=== PATIENT | female | born 1995 | race Caucasian/White ===

== ENCOUNTER 2019-03-29 21:21 | Emergency (ER) | payer SELFPAY ==
[2019-03-29 21:29] VITALS: BP 123/76; PULSE 79; RESP 16; TEMP 36.9; O2SAT 98; BMI 23.6
--- NOTE | 2019-03-29 22:02 | W.ED.BACK ---
HPI - Back Pain/Injury General: Chief Complaint: Back Pain/Injury Stated Complaint: BACK PAIN Time Seen by Provider: 03/29/19 21:53 History of Present Illness: HPI Narrative: Patient is a 23-year-old female comes into the ED with thoracic back pain. 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 She says she felt her back pop and then had pain afterwards. Patient denies any numbness or tingling down the extremities, weakness to the extremities, bowel or bladder incontinence or saddle anesthesia. Patient says she is able to move has normal range of motion but just feels pain. She thinks she pulled some muscles in her back. Patient denies fever, chills, nausea, vomiting, abdominal pain, chest pain, shortness of breath, dysuria, hematuria, constipation, diarrhea, blood in the stool, numbness or weakness to extremities. Review of Systems General: Reports: 10 or more systems reviewed and unremarkable except in HPI and below PFSH ED PFSH: Statuses (acute, chronic, etc) shown below reflect problem list status as previously entered and may not be historically accurate Social History Smoking and tobacco status: current every day smoker Physical Exam Const: COMMON NORMALS: oriented x3 HENMT: COMMON NORMALS: normocephalic HEAD & SCALP: normocephalic MOUTH: oral and palatal mucosa normal THROAT: posterior oropharynx normal and uvula midline Neck/C-Spine: COMMON NORMALS: supple GENERAL: Yes normal visual inspection Resp: COMMON NORMALS: normal respiratory effort, no retractions, no use of accessory muscles and clear to auscultation bilaterally AUSCULTATION: clear to auscultation bilaterally Cardio: COMMON NORMALS: regular rate, regular rhythm, S1 normal heart sound, S2 normal heart sound, no gallops, no clicks, no murmurs and peripheral pulses 2+ throughout RATE: regular rate RHYTHM: regular rhythm HEART SOUNDS: S1 normal and S2 normal PERIPHERAL PULSES: pulses 2+ throughout GI: COMMON NORMALS: normal to inspection, nondistended, normoactive bowel sounds, soft to palpation, non-tender and no masses PALPATION: Yes soft : COMMON NORMALS: Yes no CVA tenderness BLADDER/KIDNEY EXAM: Yes no CVA tenderness Back/Pelvis: COMMON NORMALS: no CVA tenderness THORACIC SPINE/UPPER BACK: Yes pain with ROM and Yes paraspinal muscle tenderness Extremity: COMMON NORMALS: normal to inspection Neuro: COMMON NORMALS: oriented x3 Skin: COMMON NORMALS: no rashes or lesions noted GENERAL SKIN EXAM: no rashes or lesions noted Course Vital Signs: Vital signs: Vital Signs Temperature 98.4 F 03/29/19 21:29 Pulse Rate 74 03/29/19 23:08 Respiratory Rate 20 H 03/29/19 23:08 Blood Pressure 116/69 03/29/19 23:08 Pulse Oximetry 98 03/29/19 21:29 Discharge Plan Discharge Patient Disposition: Home, Self-Care Clinical Impression: Thoracic back pain Qualifiers: Chronicity: acute Back pain laterality: bilateral Qualified Code(s): M54.6 - Pain in thoracic spine Condition: Stable Prescriptions: New Robaxin-750 750 mg tablet 750 mg PO Q8H Qty: 20 RF: 0 No Action No Known Home Medications RF: 0 Discharge Orders: Discharge Order (Routine); Ordered 03/29/19 Ordered By: Velasquez Stapleton Referrals: Tien Alcala FNP [Family Provider] - Discharge Diet: Regular Discharge Activity: Increase activity as tolerated Activity Restrictions/Additional Instructions: Follow-up with primary care doctor in 5-7 days for reevaluation. Take prescribed muscle relaxer Robaxin before bed to help with pain and comfort when sleeping. Take [id number] Aleve for muscle pain and inflammation. Apply ice and/or heat for symptom relief. Stretch back out daily and also massage back muscles that are tender. Discharge Date/Time: 03/29/19 23:04 Coding Level of Care Code ED [employer] Field Processing Supervisor for Sravan Cabello
[2019-03-29] MEDS: ketorolac 30 mg/mL INJ IM (22:51)
[2019-03-29] MEDS: orphenadrine 30 mg/mL Inj 2 mL 60 MG IM (22:52)
[2019-03-29 23:08] VITALS: BP 116/69; PULSE 74; RESP 20
== END 2019-03-29 23:04 | disposition home or self-care (01) ==
PROVIDERS: Emergency Provider Physician Assistant; Family Provider Nurse Practitioner Family
DX: M54.6 Pain in thoracic spine (principal); F17.210 Nicotine dependence, cigarettes, uncomplicated
CPT/HCPCS: 96372; 99281; J1885; J2360

== ENCOUNTER 2019-05-06 23:40 | Emergency (ER) | payer BC, SELFPAY ==
[2019-05-06 23:58] VITALS: BP 123/70; PULSE 87; RESP 16; TEMP 36.9; O2SAT 99; BMI 21.5
--- NOTE | 2019-05-07 00:26 | ED_ITS ---
HPI - Female Genitourinary General: Chief complaint: Vaginal Bleeding Stated complaint: possible miscariage Time Seen by Provider: 05/07/19 00:16 Source: patient Mode of arrival: ambulatory Limitations: no limitations History of Present Illness: HPI Narrative: Patient is a 23-year-old female who presents to ED today with complaints of a possible miscarriage. Patient states she had 2+ home tests approximately a week ago. She states 2 days ago she began noticing vaginal spotting and since then bleeding has increased. She states she is passing clots. She reports soaking a pad every 1-2 hours over the past day. Last LMP was March 02 and she describes her menstrual cycles as regular. If patient is positive today that would make her a female. She also reports 2 episodes of vomiting today. Reports some mild lower abdominal pain/cramping. Denies urinary symptoms. No fever/chills. MD elicited complaint: vaginal bleeding Onset (ago): day(s) Quality of pain: cramping Consistency: constant Vaginal discharge: none Vaginal bleeding: heavy and clots Exacerbating factors: none Relieving factors: none Associated symptoms: Reports abdominal pain and nausea; Deny headache(s), syncope or vaginal discharge Date of Last Menstrual Period: 03/02/19 Review of Systems Const: Denies: fever, chills, body aches, change in appetite, change in weight, fatigue or malaise Card: Denies: chest pain, palpitations, irregular heart rhythm, edema, lightheadedness, syncope, pre-syncope or shortness of breath when lying down Resp: Denies: shortness of breath, productive cough, coughing up blood or chest congestion GI: Reports: abdominal pain, nausea and vomiting (x2); Denies: diarrhea, change in bowel habits, change in stool character, blood in s tool, white/light colored stool or fatty stool : Reports: vaginal bleeding and pelvic pain; Denies: flank pain, difficulty urinating, painful urination, urinary frequency, urinary urgency, genital lesion, vaginal odor or vaginal discharge Musc: Denies: neck pain or back pain Skin/Breast: Denies: rash Neuro: Denies: headache PFSH ED PFSH: Social History Smoking and tobacco status: never smoked Female Reproductive History: Date of last menstrual period: 03/02/19 Physical Exam Const: COMMON NORMALS: no apparent distress, oriented x3, no limitations, healthy appearing, alert and well nourished Resp: COMMON NORMALS: normal respiratory effort and clear to auscultation bilaterally AUSCULTATION: clear to auscultation bilaterally Cardio: COMMON NORMALS: regular rate and regular rhythm RATE: regular rate RHYTHM: regular rhythm GI: COMMON NORMALS: normal to inspection, nondistended, normoactive bowel sounds, soft to palpation, no hepatosplenomegaly and no masses PALPATION: Yes soft, Yes tender (mild throughout lower abdomen) and Yes no hepatosplenomegaly : COMMON NORMALS: Yes no CVA tenderness BLADDER/KIDNEY EXAM: Yes no CVA tenderness Back/Pelvis: COMMON NORMALS: no CVA tenderness Neuro: COMMON NORMALS: oriented x3 SENSORIUM/ORIENTATION: Yes alert Skin: COMMON NORMALS: no rashes or lesions noted GENERAL SKIN EXAM: no rashes or lesions noted Course Vital Signs: Vital signs: Vital Signs Temperature 98.5 F 05/06/19 23:58 Pulse Rate 87 05/06/19 23:58 Respiratory Rate 16 05/06/19 23:58 Blood Pressure 123/70 05/06/19 23:58 Pulse Oximetry 99 05/06/19 23:58 MDM - Female MDM Narrative: Medical decision making narrative: Patient's vitals are completely stable. Labs are non-concerning at this time. H&H at this time are 10.5/33.5. I have no previous for comparisons. Patient's hCG is 0.50 meaning this is most likely a normal menstrual cycle. There is no need for additional work-up today including pelvic ultrasound. Recommend she follow-up with her primary care physician in 48 hours if bleeding continues. Return to the emergency department at anytime for worsening bleeding, lightheadedness, dizziness, syncopal episodes. Lab Data: Labs: Lab Results 05/07/19 05/07/19 05/07/19 Range/Units 00:36 00:36 00:36 WBC 7.5 (4.0-10.0) 10^3/ uL RBC 3.54 L (4.1-5.3) 10^6/u L Hgb 10.5 L (11.5-15.3) g/dL Hct 33.5 L (37.0-47.0) % MCV 94.6 (81-99) fL MCH 29.7 (28.0-34.0) pg MCHC 31.3 (30.0-36.0) g/dL RDW 13.4 (12.1-15.1) % Plt Count 318 (130-400) 10^3/c mm MPV 9.7 (7.4-10.4) fL Neut % (Auto) 46.0 % Lymph % (Auto) 35.2 % Tompkins % (Auto) 10.4 % Eos % (Auto) 7.2 % Baso % (Auto) 1.1 % Neut # (Auto) 3.5 (1.8-7.7) 10^3/u L Lymph # (Auto) 2.7 (0.8-4.8) 10^3/u L Tompkins # (Auto) 0.8 (0.2-0.9) 10^3/u L Eos # (Auto) 0.5 (0.0-0.8) 10^3/u L Baso # (Auto) 0.1 (0.0-0.1) 10^3/u L Nucleated RBC % (a uto) 0 % Nucleated RBCs # 0.0 /100WBC Sodium 136 (136-145) mmol/L Potassium 3.8 (3.5-5.1) mmol/L Chloride 100 (98-107) mmol/L Carbon Dioxide 25 (22-29) mmol/L Anion Gap 14.8 (5-19) BUN 13 (6-20) mg/dL Creatinine 0.7 (0.5-0.9) mg/dL GFR Calculation 105.6 (90-130) mL/min Glucose 88 (65-115) mg/dL Calcium 9.5 (8.5-10.5) mg/dL Total Bilirubin 0.2 (0.15-1.2) mg/dL AST 17 (0-32) U/L ALT 14 (0-33) U/L Alkaline Phosphata se 62 (35-105) IU/L Total Protein 7.6 (6.6-8.7) g/dL Albumin 4.2 (3.5-5.2) g/dL Globulin 3.4 (1.3-4.6) g/dL Ser , Doreen i-Qnt 0.50 mIU/mL Blood Type A Positive Discharge Plan Discharge Patient Disposition: Home, Self-Care Clinical Impression: Normal menstrual period Condition: Stable Prescriptions: No Action No Known Home Medications RF: 0 Robaxin-750 750 mg tablet 750 mg PO Q8H Qty: 20 RF: 0 Discharge Orders: Discharge Order (Routine); Ordered 05/07/19 Ordered By: Lori Wilson Referrals: Tien Alcala FNP [Family Provider] - Rishi Mancuso DO [Primary Care Provider] - Discharge Diet: Usual diet Discharge Activity: Resume usual activity Activity Restrictions/Additional Instructions: Follow-up with primary care in 48 hours if heavy bleeding persists. Return to the emergency department for worsening bleeding, lightheadedness, dizziness, passing out episodes, worsening pain, or any other concerns you have. Coding Level of Care Code ED Senior Mechanical Technician for Sravan Fwamaya Exam Detailed
[2019-05-07 00:46] LABS: Basophils # 0.1 10^3/uL (0.0-0.1); Basophils % 1.1 %; Eosinophils # 0.5 10^3/uL (0.0-0.8); Eosinophils % 7.2 %; Hematocrit 33.5 % (37.0-47.0); Hemoglobin 10.5 g/dL (11.5-15.3); Lymphocytes # 2.7 10^3/uL (0.8-4.8); Lymphocytes % 35.2 %; Mean Corpuscular HGB Conc 31.3 g/dL (30.0-36.0); Mean Corpuscular Hemoglobin 29.7 pg (28.0-34.0); Mean Corpuscular Volume 94.6 fL (81-99); Mean Platelet Volume 9.7 fL (7.4-10.4); Monocytes # 0.8 10^3/uL (0.2-0.9); Monocytes % 10.4 %; Neutrophils # 3.5 10^3/uL (1.8-7.7); Nucleated Red Blood Cells % 0 %; Platelet Count 318 10^3/cmm (130-400); Red Blood Count 3.54 10^6/uL (4.1-5.3); Red Cell Distribution Width 13.4 % (12.1-15.1); White Blood Count 7.5 10^3/uL (4.0-10.0)
[2019-05-07 01:23] LABS: Alanine Aminotransferase 14 U/L (0-33); Albumin Level 4.2 g/dL (3.5-5.2); Alkaline Phosphatase 62 IU/L (35-105); Anion Gap 14.8 (5-19); Aspartate Amino Transferase 17 U/L (0-32); Blood Urea Nitrogen 13 mg/dL (6-20); Calcium 9.5 mg/dL (8.5-10.5); Carbon Dioxide 25 mmol/L (22-29); Chloride 100 mmol/L (98-107); Creatinine Clr Calc Pharmacy 103.2966; Globulin 3.4 g/dL (1.3-4.6); Glomerular Filtration Rate 105.6 mL/min (90-130); Glucose 88 mg/dL (65-115); Potassium 3.8 mmol/L (3.5-5.1); Sodium 136 mmol/L (136-145); Total Bilirubin 0.2 mg/dL (0.15-1.2); Total Protein 7.6 g/dL (6.6-8.7)
[2019-05-07 01:35] VITALS: BP 116/57; PULSE 70; RESP 18; O2SAT 96
== END 2019-05-07 01:35 | disposition home or self-care (01) ==
PROVIDERS: Emergency Provider Physician Assistant; Family Provider Nurse Practitioner Family; PCP Family Medicine
DX: R10.30 Lower abdominal pain, unspecified (principal)
CPT/HCPCS: 36415; 80053; 84702; 85025; 86900; 99282

== ENCOUNTER 2019-08-18 09:23 | Emergency (ER) | payer SELFPAY ==
[2019-08-18 09:27] VITALS: BP 141/77; PULSE 90; RESP 16; TEMP 36.7; O2SAT 99; BMI 23.6
--- NOTE | 2019-08-18 09:34 | XR_ITS ---
WS: [id number] XR chest 1V portable 10115 REASON FOR EXAM: cough FINDINGS: The lung conte are well aerated. A nipple ring is seen on the right side. No pneumonia, pleural effusion, pulmonary edema, or mass effect. The hilum and apices are normal. No osseous abnormalities. XR/XR chest 1V portable [id number] IMPRESSION: Negative chest for acute findings.
--- NOTE | 2019-08-18 09:35 | ED_ITS ---
HPI - General Adult General: Chief complaint: General Medical Stated complaint: N/V BLOOD IN URINE Time Seen by Provider: 08/18/19 09:31 History of Present Illness: HPI narrative: Patient is a 23-year-old female comes to the ED with abdominal pain nausea and vomiting. Symptoms started yesterday. Patient is also complaining of having some right-sided flank pain. Patient says she had some blood in her urine yesterday. Denies having a fever or chills. Patient states she had about 4 episodes of emesis yesterday and did cough up some blood after 4 episodes of emesis. Last menstrual cycle was July 01. She says her menstrual cycles are irregular and there will be some months where she will not have a period and then the following month menstruation flow will be very heavy. Denies any menstrual cramping or pain before and during periods. Patient denies any vaginal bleeding or other vaginal discharge. Associated symptoms: Reports nausea and vomiting; Deny chest pain, dyspnea, headache(s), rash or palpitations Review of Systems Const: Denies: fever(s), chills or fatigue Eyes: Denies: change in vision or eye discomfort ENMT: Denies: throat pain, odynophagia, nasal discharge or nasal congestion Card: Denies: chest pain, palpitations, edema, swelling of feet/ankles, dyspnea on exertion or orthopnea Resp: Denies: dyspnea, productive cough or non-productive cough GI: Reports: abdominal pain, nausea and vomiting; Denies: diarrhea, constipation or hematochezia : Reports: flank pain (right); Denies: dysuria or hematuria Musc: Denies: neck pain, back pain or extremity swelling Skin/Breast: Denies: rash or new lesions Neuro: Denies: headache(s), numbness in extremities or weakness in extremities PFS ED PFSH: Social History Smoking and tobacco status: never smoked Female Reproductive History: Date of last menstrual period: 07/02/19 Physical Exam Const: COMMON NORMALS: no acute distress, patient oriented x3, healthy appearing and alert GENERAL APPEARANCE: cooperative and comfortable; not ill appearing HENMT: COMMON NORMALS: normocephalic HEAD & SCALP: normocephalic MOUTH: Normal oral and palatal mucosa present THROAT: posterior oropharynx normal and uvula midline Eye: COMMON NORMALS: Equal, round and reactive pupils present PUPIL: Yes Equal, round and reactive pupils present Neck/C-Spine: COMMON NORMALS: supple GENERAL: Yes normal visual inspection Resp: COMMON NORMALS: normal respiratory effort, No retractions, No use of accessory muscles and clear to auscultation bilaterally AUSCULTATION: clear to auscultation bilaterally Cardio: COMMON NORMALS: regular rate, regular rhythm, S1 normal heart sound present, S2 normal heart sound present, No gallops present (Cardio), No clicks present (Cardio), No murmurs present (Cardio) and Peripheral pulses 2+ throughout RATE: regular rate RHYTHM: regular rhythm HEART SOUNDS: S1 normal heart sound present and S2 normal heart sound present PERIPHERAL PULSES: Peripheral pulses 2+ throughout GI: COMMON NORMALS: Normal to inspection, nondistended, normoactive bowel sounds present, Soft to palpation and no masses AUSCULTATION: Yes normoactive bowel sounds PALPATION: Yes Soft to palpation and Yes Tenderness to palpation present (GI) Details: RLQ (Positive McBurney's point) : BLADDER/KIDNEY EXAM: Yes CVA tenderness on the right Back/Pelvis: GENERAL BACK: Yes CVA tenderness Extremity: COMMON NORMALS: normal to inspection and no pedal edema Neuro: COMMON NORMALS: patient oriented x3 and moves all extremities SENSORIUM/ORIENTATION: Yes alert Skin: COMMON NORMALS: no rashes or lesions noted GENERAL SKIN EXAM: no rashes or lesions noted and dry skin Course Vital Signs: Vital signs: Vital Signs Temperature 98.1 F 08/18/19 09:27 Pulse Rate 87 08/18/19 14:49 Respiratory Rate 18 08/18/19 14:49 Blood Pressure 139/70 08/18/19 14:49 Pulse Oximetry 99 08/18/19 14:49 [facility] - General Adult Lab Data: Attestation: I reviewed the patient's lab results. Labs: Lab Results 08/18/19 08/18/19 08/18/19 Range/Units 09:43 09:43 09:43 WBC 6.7 (4.0-10.0) 10^3/ uL RBC 4.48 (4.1-5.3) 10^6/u L Hgb 9.8 L (11.5-15.3) g/dL Hct 35.5 L (37.0-47.0) % MCV 79.2 L (81-99) fL MCH 21.9 L (28.0-34.0) pg MCHC 27.6 L (30.0-36.0) g/dL RDW 16.0 H (12.1-15.1) % Plt Count 390 (130-400) 10^3/c mm MPV 10.1 (7.4-10.4) fL Neut % (Auto) 39.2 % Lymph % (Auto) 42.2 % Randolph % (Auto) 12.5 % Eos % (Auto) 4.6 % Baso % (Auto) 1.2 % Neut # (Auto) 2.6 (1.8-7.7) 10^3/u L Lymph # (Auto) 2.8 (0.8-4.8) 10^3/u L Randolph # (Auto) 0.8 (0.2-0.9) 10^3/u L Eos # (Auto) 0.3 (0.0-0.8) 10^3/u L Baso # (Auto) 0.1 (0.0-0.1) 10^3/u L Nucleated RBC % (a uto) 0 % Nucleated RBCs # 0.0 /100WBC Sodium 139 (136-145) mmol/L Potassium 4.2 (3.5-5.1) mmol/L Chloride 103 (98-107) mmol/L Carbon Dioxide 23 (22-29) mmol/L Anion Gap 17.2 (5-19) BUN 15 (6-20) mg/dL Creatinine 0.8 (0.5-0.9) mg/dL GFR Calculation 90.5 (90-130) mL/min Glucose 103 (65-115) mg/dL Calculated Osmolal ity 285 (285-295) mOsm/k g Calcium 10.1 (8.5-10.5) mg/dL Total Bilirubin 0.2 (0.15-1.2) mg/dL AST 18 (0-32) U/L ALT 12 (0-33) U/L Alkaline Phosphata se 72 (35-105) IU/L Total Protein 8.3 (6.6-8.7) g/dL Albumin 4.4 (3.5-5.2) g/dL Globulin 3.9 (1.3-4.6) g/dL Lipase 63 H (13-60) U/L HCG, Qual Negative (Negative) Urine Color (Yellow) Urine Appearance (CLEAR) Urine pH (5-7) Ur Specific Gravit y (1.005-1.030) Urine Protein (Negative) Urine Glucose (UA) (Normal) Urine Ketones (Negative) Urine Blood (Negative) Urine Nitrate (Negative) Urine Bilirubin (NEGATIVE) Urine Urobilinogen (Negative) mg/dL Ur Leukocyte Fela ase (Negative) Urine RBC (0-2) /hpf Urine WBC (0-5) /hpf Ur Squamous Epith Cells (0-5) Urine Bacteria (NONE) 08/18/19 Range/Units 10:03 WBC (4.0-10.0) 10^3/ uL RBC (4.1-5.3) 10^6/u L Hgb (11.5-15.3) g/dL Hct (37.0-47.0) % MCV (81-99) fL MCH (28.0-34.0) pg MCHC (30.0-36.0) g/dL RDW (12.1-15.1) % Plt Count (130-400) 10^3/c mm MPV (7.4-10.4) fL Neut % (Auto) % Lymph % (Auto) % Randolph % (Auto) % Eos % (Auto) % Baso % (Auto) % Neut # (Auto) (1.8-7.7) 10^3/u L Lymph # (Auto) (0.8-4.8) 10^3/u L Randolph # (Auto) (0.2-0.9) 10^3/u L Eos # (Auto) (0.0-0.8) 10^3/u L Baso # (Auto) (0.0-0.1) 10^3/u L Nucleated RBC % (a uto) % Nucleated RBCs # /100WBC Sodium (136-145) mmol/L Potassium (3.5-5.1) mmol/L Chloride (98-107) mmol/L Carbon Dioxide (22-29) mmol/L Anion Gap (5-19) BUN (6-20) mg/dL Creatinine (0.5-0.9) mg/dL GFR Calculation (90-130) mL/min Glucose (65-115) mg/dL Calculated Osmolal ity (285-295) mOsm/k g Calcium (8.5-10.5) mg/dL Total Bilirubin (0.15-1.2) mg/dL AST (0-32) U/L ALT (0-33) U/L Alkaline Phosphata se (35-105) IU/L Total Protein (6.6-8.7) g/dL Albumin (3.5-5.2) g/dL Globulin (1.3-4.6) g/dL Lipase (13-60) U/L HCG, Qual (Negative) Urine Color Yellow (Yellow) Urine Appearance Clear (CLEAR) Urine pH 6.5 (5-7) Ur Specific Gravit y 1.015 (1.005-1.030) Urine Protein Neg (Negative) Urine Glucose (UA) Norm (Normal) Urine Ketones Negative (Negative) Urine Blood Neg (Negative) Urine Nitrate Negative (Negative) Urine Bilirubin Neg (NEGATIVE) Urine Urobilinogen Norm (Negative) mg/dL Ur Leukocyte Fela ase Negative (Negative) Urine RBC None (0-2) /hpf Urine WBC Rare (0-5) /hpf Ur Squamous Epith Cells 5-10 H (0-5) Urine Bacteria 1+ H (NONE) Imaging Data^: CXR: Attestation: I personally reviewed and interpreted this imaging study as follows: Radiologist's impression: [address] [address] XRay Report Signed Patient: Bee Skaggs Unit #: [id number] : 1995 Age/Sex: 23 / F ADM Date: 08/18/19 Loc: ER Room/Bed: Attending Dr: Ordering Provider/Ordering MD: Velasquez Stapleton Date of Service: 08/18/19 Procedure(s): XR chest 1V portable [id number] Accession Number(s): [id number] Report Number: [id number] WS: [id number] XR chest 1V portable [id number] REASON FOR EXAM: cough FINDINGS: The lung conte are well aerated. A nipple ring is seen on the right side. No pneumonia, pleural effusion, pulmonary edema, or mass effect. The hilum and apices are normal. No osseous abnormalities. XR/XR chest 1V portable 53715 IMPRESSION: Negative chest for acute findings. Dictated By: Wily Marshall DO Signed By: Wily Marshall DO Signed Date/Time: 08/18/19 1012 DD/ 1011 CT Abd/Pel: Attestation: I personally reviewed and interpreted this imaging study as follows: Radiologist's impression: [facility] [address] [place] [address] CT Scan Report Signed Patient: Bee Skaggs Unit #: [id number] : 1995 Age/Sex: 23 / F ADM Date: 08/18/19 Loc: ER Room/Bed: Attending Dr: Ordering Provider/Ordering MD: Velasquez Stapleton Date of Service: 08/18/19 Procedure(s): CT abdomen pelvis w con* [id number] Accession Number(s): [id number] Report Number: [id number] WS: [id number] CT abdomen pelvis w con* [id number] REASON FOR EXAM: RLQ tenderness, n/v IV CONTRAST ADMINISTERED: Omnipaque 300, 75 mL TOTAL EXAM DLP: 570.[address] scans at [facility] use at least one of these dose optimization techniques: automated exposure control; mA and/or kV adjustment per patient size (includes targeted exams where dose is matched to clinical indication); or iterative reconstruction. FINDINGS: The mediastinum was normal. The lower lung conte show no gross abnormalities. The liver was normal with no infiltrating changes. The gallbladder is somewhat contracted. The spleen, stomach, pancreas were all normal. The adrenal glands show no abnormalities. The right and left kidneys were normal. The ascending colon shows marked fecal stasis the appendix is not well seen and does not appear to be inflamed. The transverse colon shows some isolated diverticular changes The descending colon shows diverticulosis scattered from the descending colon to the sigmoid. The right ovary is enlarged and cystic shows 3.63 x 2.92 cm. There is considerable fluid in the cul-de-sac. The endometrium is thickened 2.11 cm. The lumbar spine and bony pelvis were normal. The urinary bladder was normal. CT/CT abdomen pelvis w con* [id number] IMPRESSION: Right ovarian cyst Considerable free fluid in the pelvis. Diverticulosis of the lower descending sigmoid colon Dictated By: Wily Marshall DO Signed By: Wily Marshall DO Signed Date/Time: 08/18/19 1122 DD/ 1117 US OB: Attestation: I personally reviewed and interpreted this imaging study as follows: Radiologist's impression: Ultrasound of the pelvis was performed. Prelim report showed no acute findings. Patient's endometrium thickness was around 1.5 cm. No ovarian cysts or free fluid seen upon ultrasound. Discharge Plan Discharge Patient Disposition: Home, Self-Care Clinical Impression: Abdominal pain of unknown cause Condition: Stable Prescriptions: No Action No Known Home Medications RF: 0 Discharge Orders: Discharge Order (Routine); Ordered 08/18/19 Ordered By: Velasquez Stapleton Referrals: Rishi Mancuso DO [Primary Care Provider] - Discharge Diet: Regular Discharge Activity: Increase activity as tolerated Patient Instructions: Abdominal Pain (ED) Activity Restrictions/Additional Instructions: Follow-up with your PCP in the next 5 days for reevaluation. Talk with your PCP about your irregular menstrual cycle, so they can start some outpatient work-up and refer you to auto body repairer doctor if needed. Drink plenty of fluids and stay hydrated. You can take Tylenol or ibuprofen for pain. You can return to the ED for reevaluation if symptoms worsen. Discharge Date/Time: 08/18/19 14:51 Coding Level of Care Code ED Blood Bank Laboratory Technologist for Chg Fwd Exam Comprehensive
[2019-08-18] MEDS: sodium chloride 0.9% 1,000 ML 999 ML IV ×2 (09:58→13:39)
[2019-08-18] MEDS: ondansetron 2 mg/ML SDV 2 mL 4 MG IVP (09:59)
[2019-08-18 10:11] LABS: Basophils # 0.1 10^3/uL (0.0-0.1); Basophils % 1.2 %; Eosinophils # 0.3 10^3/uL (0.0-0.8); Eosinophils % 4.6 %; Hematocrit 35.5 % (37.0-47.0); Hemoglobin 9.8 g/dL (11.5-15.3); Lymphocytes # 2.8 10^3/uL (0.8-4.8); Lymphocytes % 42.2 %; Mean Corpuscular HGB Conc 27.6 g/dL (30.0-36.0); Mean Corpuscular Hemoglobin 21.9 pg (28.0-34.0); Mean Corpuscular Volume 79.2 fL (81-99); Mean Platelet Volume 10.1 fL (7.4-10.4); Monocytes # 0.8 10^3/uL (0.2-0.9); Monocytes % 12.5 %; Neutrophils # 2.6 10^3/uL (1.8-7.7); Neutrophils % 39.2 %; Nucleated Red Blood Cells % 0 %; Platelet Count 390 10^3/cmm (130-400); Red Blood Count 4.48 10^6/uL (4.1-5.3); White Blood Count 6.7 10^3/uL (4.0-10.0)
[2019-08-18 10:16] LABS: HCG, Serum Qual Negative (Negative)
[2019-08-18 10:26] LABS: Alanine Aminotransferase 12 U/L (0-33); Albumin Level 4.4 g/dL (3.5-5.2); Alkaline Phosphatase 72 IU/L (35-105); Anion Gap 17.2 (5-19); Aspartate Amino Transferase 18 U/L (0-32); Blood Urea Nitrogen 15 mg/dL (6-20); Calcium 10.1 mg/dL (8.5-10.5); Carbon Dioxide 23 mmol/L (22-29); Chloride 103 mmol/L (98-107); Globulin 3.9 g/dL (1.3-4.6); Glomerular Filtration Rate 90.5 mL/min (90-130); Glucose 103 mg/dL (65-115); Lipase 63 U/L (13-60); Osmolality Calculated 285 mOsm/kg (285-295); Potassium 4.2 mmol/L (3.5-5.1); Sodium 139 mmol/L (136-145); Total Bilirubin 0.2 mg/dL (0.15-1.2); Total Protein 8.3 g/dL (6.6-8.7)
[2019-08-18 10:34] LABS: Add Urine Culture? No; Bacteria Urine 1+; Bilirubin Urine Neg (NEGATIVE); Blood Urine Neg (Negative); Glucose Urine UA Norm (Normal); Ketones Urine Negative (Negative); Leukocyte Esterase Urine Negative (Negative); Nitrate Urine Negative (Negative); Protein Urine Neg (Negative); Specific Gravity, Urine 1.015 (1.005-1.030); Urine Appearance Clear (CLEAR); Urine Color Yellow (Yellow); Urobilinogen Urine Norm (Negative); WBC Urine RARE /hpf (0-5); pH Urine 6.5 (5-7)
--- NOTE | 2019-08-18 10:40 | CT_ITS ---
WS: [id number] CT abdomen pelvis w con* [id number] REASON FOR EXAM: RLQ tenderness, n/v IV CONTRAST ADMINISTERED: Omnipaque 300, 75 mL TOTAL EXAM DLP: 570.[address] scans at [facility] use at least one of these dose optimization techniques: automat ed exposure control; mA and/or kV adjustment per patient size (includes targeted exams where dose is matched to clinical indication); or iterative reconstruction. FINDINGS: The mediastinum was normal. The lower lung conte show no gross abnormalities. The liver was normal with no infiltrating changes. The gallbladder is somewhat contracted. The spleen, stomach, pancreas were all normal. The adrenal glands show no abnormalities. The right and left kidneys were normal. The ascending colon shows marked fecal stasis the appendix is not well seen and does not appear to be inflamed. The transverse colon shows some isolated diverticular changes The descending colon shows diverticulosis scattered from the descending colon to the sigmoid. The right ovary is enlarged and cystic shows 3.63 x 2.92 cm. There is considerable fluid in the cul-d e-sac. The endometrium is thickened 2.11 cm. The lumbar spine and bony pelvis were normal. The urinary bladder was normal. CT/CT abdomen pelvis w con* [id number] IMPRESSION: Right ovarian cyst Considerable free fluid in the pelvis. Diverticulosis of the lower descending sigmoid colon
[2019-08-18] MEDS: iohexol 300 mg/mL 100 mL Btl IV (11:01)
--- NOTE | 2019-08-18 12:11 | US_ITS ---
WS: [id number] PELVIC ULTRASOUND REASON FOR VISIT: RLQ pain, n/v TECHNIQUE: Grayscale and Doppler transabdominal ultrasound of the pelvis. FINDINGS: The uterus was of normal size no evidence to suggest intrauterine . There is no free fluid in the pelvis. There is normal blood flow in both ovaries. Uterus measures 8.1 cm x 4.9 cm x 4.2 cm, right ovary measures 1.4 cm x 1.8 cm x 1.6 cm, and left ova ry measures 2.6 cm x 2.0 cm x 1.7 cm. The endometrium appears to be thickened measured 1.52 cm. The hCG was negative. US/US pelvic complete* [id number] IMPRESSION: Thickened endometrium but no evidence of intra or extrauterine .
[2019-08-18 12:16] VITALS: RESP 18
[2019-08-18] MEDS: morphine 4 mg/mL SDV 1 mL 2 MG IVP (12:16)
--- NOTE | 2019-08-18 12:59 | PC.NURSE ---
patient drinking water to fill up bladder
--- NOTE | 2019-08-18 14:24 | PC.NURSE ---
us completed, patieant tolerated well
[2019-08-18 14:49] VITALS: BP 139/70; PULSE 87; RESP 18; O2SAT 99
== END 2019-08-18 14:51 | disposition home or self-care (01) ==
PROVIDERS: Emergency Provider Physician Assistant; PCP Family Medicine
DX: R10.9 Unspecified abdominal pain (principal)
CPT/HCPCS: 12345; 36415; 71045; 74177; 76856; 80053; 81001; 83690; 84703; 85025; 96361; 96374; 96375; 99283; 99284; J2270; J2405; J7030; Q9967

== ENCOUNTER 2019-11-19 00:56 | Emergency (ER) | payer SELFPAY ==
--- NOTE | 2019-11-19 00:58 | XRR_ITS ---
PROCEDURE INFORMATION: Exam: XR Right Hand Exam date and time: 11/19/2019 1:17 AM Age: 24 years old Clinical indication: Injury or trauma; Initial encounter; Blunt trauma (contusions or hematomas; Hand; Right; Injury date: 11/18/19; Patient HX: C/O pain RT 06/21 mpj. States she punched a wall TECHNIQUE: Imaging protocol: XR Right hand. Views: 3 or more views. COMPARISON: No relevant prior studies available. FINDINGS: Bones/joints: Osseous structures of the hand are without an acute process. Distal radioulnar joint and radiocarpal joints grossly normal. Carpus without fracture. Metacarpals and phalangeal without fracture or dislocation. No erosive changes or periarticular calcifications. Soft tissues: See Bones/joints finding. XR/XR hand RT min 3V* [id number] IMPRESSION: Normal hand. No fracture. No foreign body.
[2019-11-19 01:07] VITALS: BP 122/72; PULSE 92; RESP 17; TEMP 36.7; O2SAT 98; BMI 20.7
--- NOTE | 2019-11-19 01:48 | ED_ITS ---
HPI - Extremity Problem General: Chief complaint: Extremity Injury, Upper Stated complaint: right hand injury Time Seen by Provider: 11/19/19 01:35 History of Present Illness: HPI Narrative: Patient is a 24-year-old female comes to the ED with right hand pain. Patient says just prior to arrival while she got angry with her boyfriend and punched a wall. She is now having pain in her right hand. Most of her pain is in the fourth and fifth metacarpal region and also at her PIP joint of her index finger. She says it hurts for her to make a fist or move her fingers. She rates pain a 7 out of 10 currently. She has not had any [id number] pain meds before arriving to the ED. Associated symptoms: Deny chest pain, fever(s) or rash Review of Systems Const: Denies: fever(s), chills or fatigue Eyes: Denies: change in vision or eye discomfort ENMT: Denies: throat pain, odynophagia, nasal discharge or nasal congestion Card: Denies: chest pain, palpitations, edema, swelling of feet/ankles, dyspnea on exertion or orthopnea Resp: Denies: dyspnea, productive cough or non-productive cough GI: Denies: abdominal pain, nausea, vomiting, diarrhea, constipation or hematochezia : Denies: flank pain, dysuria or hematuria Musc: Reports: extremity pain (Right hand pain); Denies: neck pain, back pain or extremity swelling Skin/Breast: Denies: rash or new lesions Neuro: Denies: headache(s), numbness in extremities or weakness in extremities [facility] ED PFSH: Social History Smoking and tobacco status: never smoked Female Reproductive History: Date of last menstrual period: 10/20/19 Physical Exam Const: COMMON NORMALS: no acute distress, patient oriented x3 and alert GENERAL APPEARANCE: cooperative and comfortable HENMT: COMMON NORMALS: normocephalic HEAD & SCALP: normocephalic MOUTH: Normal oral and palatal mucosa present THROAT: posterior oropharynx normal and uvula midline Neck/C-Spine: COMMON NORMALS: supple GENERAL: Yes normal visual inspection Resp: COMMON NORMALS: normal respiratory effort, No retractions, No use of accessory muscles and clear to auscultation bilaterally AUSCULTATION: clear to auscultation bilaterally Cardio: COMMON NORMALS: regular rate, regular rhythm, S1 normal heart sound present, S2 normal heart sound present, No gallops present (Cardio), No clicks present (Cardio), No murmurs present (Cardio) and Peripheral pulses 2+ throughout RATE: regular rate RHYTHM: regular rhythm HEART SOUNDS: S1 normal heart sound present and S2 normal heart sound present PERIPHERAL PULSES: Peripheral pulses 2+ throughout GI: COMMON NORMALS: Normal to inspection, nondistended, normoactive bowel sounds present, Soft to palpation, non-tender and no masses PALPATION: Yes Soft to palpation : COMMON NORMALS: Yes no CVA tenderness BLADDER/KIDNEY EXAM: Yes no CVA tenderness Back/Pelvis: COMMON NORMALS: no CVA tenderness Extremity: COMMON NORMALS: capillary refill normal RIGHT UPPER EXTREMITY: Yes hand & digits Right hand and digits: Yes inspection (Ecchymosis over index finger PIP joint. Patient also has some ecchymosis and swelling over the metacarpal region of fourth and fifth digit.), Yes palpation (Tender over PIP joints of index finger and over metacarpal region of fourth and fifth digit.), Yes ROM exam (Admitted due to pain) and Yes neurovascular exam (intact) Neuro: COMMON NORMALS: patient oriented x3 and moves all extremities SENSORIUM/ORIENTATION: Yes alert Skin: GENERAL SKIN EXAM: dry skin Course Vital Signs: Vital signs: Vital Signs Temperature 98.1 F 11/19/19 01:07 Pulse Rate 92 11/19/19 01:07 Respiratory Rate 17 11/19/19 01:07 Blood Pressure 122/72 11/19/19 01:07 Pulse Oximetry 98 11/19/19 01:07 MDM - Extremity (Nontraumatic) MDM Narrative: Medical decision making narrative: Patient is a 24-year-old female comes to the ED with right hand pain after punching wall. Physical exam shows some ecchymosis and tenderness upon palpation over the fourth and fifth metacarpal right hand. X-ray shows a proximal head fracture of metacarpal fourth digit. Patient was put in an ulnar gutter splint and a referral to orthopedic was placed with case management. Patient was sent home with a prescription for 8 tabs of [place] 5/325. Patient was told to limit activity with right hand and told her to follow-up with orthopedic doctor at the scheduled appointment with case management. Patient understood and agreed with plan. Return to ED precautions given. Imaging Data^: Xray Ortho: Attestation: I personally reviewed and interpreted this imaging study as follows: My impression: Right hand x-ray shows fracture of proximal head of metacarpal fourth digit. Discharge Plan Discharge Patient Disposition: Home Clinical Impression: Closed boxer's fracture Qualifiers: Encounter type: initial encounter Qualified Code(s): S62.339A - Displaced fracture of neck of unspecified metacarpal bone, initial encounter for closed fracture Condition: Stable Prescriptions: No Action No Known Home Medications RF: 0 Discharge Orders: Discharge Order (Routine); Ordered 11/19/19 Ordered By: Velasquez Stapleton Referrals: Rishi Mancuso, [Primary Care Provider] - Discharge Diet: Regular Discharge Activity: Limit activity as instructed Patient Instructions: Hand Fracture (ED), Boxer Fracture (ED) Activity Restrictions/Additional Instructions: Follow-up with medical provider as directed. Case management should be contacting you in the next several days to set up an appointment with orthopedic doctor. Take medications as prescribed. Return to the ER or your medical provider if condition worsens. Please read and understand discharge instructions. If any questions, please ask. Stand Alone Forms: Work/School Release Coding Level of Care Code ED Block Operator for Sravan Fwamaya Exam Comprehensive
[2019-11-19] MEDS: ibuprofen 600 mg Tablet PO (03:16)
[2019-11-19 03:25] VITALS: PULSE 90
[2019-11-19 03:30] VITALS: BP 125/80; PULSE 90; RESP 16; TEMP 36.7; O2SAT 98
--- NOTE | 2019-11-19 10:33 | DCPLANNER ---
software manager had message to schedule a follow up appointment for patient with ortho. software manager called the ortho clinic, spoke with Pat, gave clinic patients information. software manager was told that patients information would be printed and reviewed. Clinic will call patient with appointment information.
--- NOTE | 2019-11-21 15:21 | DCPLANNER ---
Patient has a follow up appointment for patient with ortho scheduled for November 25, 2019 at 3:[address] Lester. Clinic called patient with appointment information.
--- NOTE | 2019-12-11 08:07 | DCPLANNER ---
Patient had a follow up appointment scheduled for 11.25.19 with ortho - patient did attend the appointment.
== END 2019-11-19 03:30 | disposition home or self-care (01) ==
PROVIDERS: Emergency Provider Physician Assistant; PCP Family Medicine
DX: S62.334A Displaced fracture of neck of fourth metacarpal bone, right hand, initial encounter for closed fracture (principal); W22.09XA Striking against other stationary object, initial encounter
CPT/HCPCS: 12345; 29125; 73130; 99281; 99283

== ENCOUNTER 2020-11-16 08:48 | Emergency (ER) | payer OTHER, SELFPAY ==
[2020-11-16 08:56] VITALS: BP 119/79; PULSE 92; RESP 18; TEMP 36.2; O2SAT 96; BMI 23.6
[2020-11-16 09:02] VITALS: BP 114/85; PULSE 80; RESP 16; O2SAT 99
--- NOTE | 2020-11-16 09:14 | W.ED.BACK ---
HPI - Back Pain/Injury General: Chief Complaint: Back Pain/Injury Stated Complaint: left lower back pain Time Seen by Provider: 11/16/20 08:51 History of Present Illness: HPI Narrative: Patient complains about left lower back pain since Sunday. Patient has had a history of this. 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 Hurts with movement hurts with getting up and out of a chair rolled over in bed. MD elicited complaint: back pain Pertinent past history: prior back pain Onset (ago): day(s) Timing: constant Severity: mild Similar Symptoms Previously: Yes Quality: aching and tingling Location: left lower back Radiation: none Exacerbating factors: movement Relieving factors: immobilization Context: unknown Associated symptoms: Reports no associated symptoms; Deny abdominal pain, chills, fever(s), nausea or vomiting Review of Systems Const: Denies: fever(s), chills or body aches Eyes: Denies: change in vision or blurry vision ENMT: Denies: throat pain or nasal congestion Card: Denies: chest pain or dyspnea on exertion Resp: Denies: dyspnea, productive cough or non-productive cough GI: Denies: abdominal pain, nausea or vomiting Musc: Reports: back pain; Denies: extremity pain Skin/Breast: Denies: rash Neuro: Denies: headache(s) Psych: Denies: anxiety or depression Petey/Lymph: Denies: easy bruising PFS ED PFSH: Social History Smoking and tobacco status: never smoked Female Reproductive History: Date of last menstrual period: 10/20/19 Physical Exam Const: COMMON NORMALS: no acute distress, average body habitus and patient oriented x3 HENMT: COMMON NORMALS: normocephalic HEAD & SCALP: normal to inspection and normocephalic FACE & SINUS: normal facial exam Eye: COMMON NORMALS: conjunctivae normal GENERAL EYE: appearance normal, both eyes and all related structures CONJUNCTIVA: Yes conjunctivae normal Neck/C-Spine: COMMON NORMALS: no JVD Chest: COMMONS NORMALS: normal inspection of the chest Resp: COMMON NORMALS: normal respiratory effort and clear to auscultation bilaterally AUSCULTATION: clear to auscultation bilaterally Cardio: COMMON NORMALS: no JVD, regular rate and regular rhythm RATE: regular rate RHYTHM: regular rhythm GI: COMMON NORMALS: Normal to inspection, nondistended, normoactive bowel sounds present Back/Pelvis: LUMBAR SPINE/LOWER BACK: Yes normal to inspection, Yes lumbar ROM normal, No lumbar spinal tenderness, Yes paraspinal muscle tenderness, Yes paraspinal muscle spasm, No straight leg raise positive right and Yes straight leg raise positive left Extremity: COMMON NORMALS: normal to inspection and full ROM Neuro: COMMON NORMALS: patient oriented x3 Course Vital Signs: Vital signs: Vital Signs Temperature 97.1 F L 11/16/20 08:56 Pulse Rate 89 11/16/20 09:20 Respiratory Rate 15 11/16/20 09:20 Blood Pressure 114/85 11/16/20 09:20 Pulse Oximetry 99 11/16/20 09:20 MDM - Back Pain/Injury MDM Narrative: Medical decision making narrative: Bulging lumbar disc most likely. Patient has pain with range of motion straight leg lift was positive on the left. Bilateral straight leg lift was positive also some tenderness paraspinal muscles left side. Discharge Plan Discharge Patient Disposition: Home Clinical Impression: Strain of lumbar region Qualifiers: Encounter type: initial encounter Qualified Code(s): S39.012A - Strain of muscle, fascia and tendon of lower back, initial encounter Condition: Stable Prescriptions: New Celebrex 100 mg capsule 100 mg PO BID Qty: 20 RF: 0 cyclobenzaprine 5 mg tablet 5 mg PO TID PRN (Reason: muscle spasm) Qty: 10 RF: 0 Discharge Orders: Discharge ED (Routine); Ordered 11/16/20 Ordered By: Miguel Alcala Referrals: Johnson Motta MD [Primary Care Provider] - Discharge Diet: Usual diet Discharge Activity: Increase activity as tolerated Patient Instructions: Low Back Strain (ED), Core Strengthening Exercises (GEN) Activity Restrictions/Additional Instructions: Follow-up with medical provider as directed. Take medications as prescribed. Return to the ER or your medical provider if condition worsens. Please read and understand discharge instructions. If any questions ask please. I think that going to see a chiropractor would be of benefit. Also can apply ice and are moist heat to area to help with discomfort. No lifting over 10 pounds for next couple weeks. Stand Alone Forms: Work/School Release Coding Level of Care Code ED Ex Assistant/Program Director for Chg Fwd Exam Comprehensive
[2020-11-16 09:20] VITALS: BP 114/85; PULSE 89; RESP 15; O2SAT 99
== END 2020-11-16 09:20 | disposition home or self-care (01) ==
PROVIDERS: Emergency Provider Nurse Practitioner Family; PCP Family Medicine
DX: S39.012A Strain of muscle, fascia and tendon of lower back, initial encounter (principal); X58.XXXA Exposure to other specified factors, initial encounter
CPT/HCPCS: 99281

== ENCOUNTER 2021-09-02 23:38 | Emergency (ER) | payer OTHER, SELFPAY ==
[2021-09-03] VITALS (7 sets, daily range): BP systolic 102–135; BP diastolic 60–72; PULSE 59–80; RESP 14–22; TEMP 36.6; O2SAT 98–99
--- NOTE | 2021-09-03 02:27 | XRR_ITS ---
PROCEDURE INFORMATION: Exam: XR Chest Exam date and time: 09/03/2021 2:37 AM Age: 26 years old Clinical indication: Chest pressure; Patient HX: C/O RT sided chest pain; Additional info: R sided cp TECHNIQUE: Imaging protocol: Radiologic exam of the chest. Views: 1 view. COMPARISON: CR XR chest 1V portable [id number] 08/18/2019 10:05 AM FINDINGS: Tubes, catheters and devices: Monitor leads project over the chest. Lungs: No significant or acute findings. No consolidation. Pleural spaces: No significant costophrenic angle blunting. No pneumothorax. Heart/Mediastinum: Heart size is normal. Bones/joints: No acute osseous abnormality. XR/XR chest 1V portable [id number] IMPRESSION: No acute abnormality demonstrated.
[2021-09-03] MEDS: ondansetron 2 mg/ML SDV 2 mL 4 MG IVP (02:32)
[2021-09-03] MEDS: ketorolac 30 mg/mL INJ 15 MG IVP (02:32)
[2021-09-03] MEDS: oxyCODONE-APAP 5-325 mg Tablet 1 TAB PO (03:43)
--- NOTE | 2021-09-03 04:34 | ED_ITS ---
HPI - General Adult General: Chief complaint: General Medical Stated complaint: pain in R side Time Seen by Provider: 09/03/21 02:24 Source: patient History of Present Illness: 26-year-old female complaining of right-sided pain to her chest, worse with deep breathing. She is not overly short of breath. She has not been coughing. No fever. No long car trips. She notes that she had something similar when she played sports, and she was told that she had sprained her rib Onset (ago): day(s) Location: chest Radiation: non-radiation Severity: moderate Quality: stabbing and aching Pain Consistency: constant Relieving factors: none Exacerbating factors: movement Associated symptoms: Reports chest pain and nausea; Deny confusion, cough, diaphoresis, dyspnea, fevers/chills, headache(s), malaise, rash, palpitations, syncope or vomiting Review of Systems Const: Denies: malaise or diaphoresis ENMT: Denies: throat pain Card: Reports: chest pain; Denies: palpitations or syncope Resp: Denies: dyspnea GI: Reports: nausea; Denies: vomiting Skin/Breast: Denies: rash Neuro: Denies: headache(s) or confusion PFSH ED PFSH: Social History Smoking and tobacco status: never smoked Female Reproductive History: Date of last menstrual period: 10/20/19 Physical Exam Const: COMMON NORMALS: alert GENERAL APPEARANCE: well developed ORIENTATION/CONSCIOUSNESS: Yes awake, Yes oriented to person and Yes oriented to time; not oriented to place HENMT: COMMON NORMALS: normocephalic, external ears normal, Normal external nose present and moist oral mucous membranes HEAD & SCALP: normocephalic FACE & SINUS: normal facial exam NOSE: Normal external nose present and No nasal discharge present EXTERNAL EAR: Yes external ears normal TEETH & GINGIVA: no abnormal tooth and associated gingiva THROAT: posterior oropharynx normal; no peritonsillar mass Eye: COMMON NORMALS: Equal, round and reactive pupils present, EOMs intact bilaterally and conjunctivae normal EYELID: eyelids normal CONJUNCTIVA: Yes conjunctivae normal PUPIL: Yes Equal, round and reactive pupils present Neck/C-Spine: COMMON NORMALS: full ROM GENERAL: No tracheal deviation CERVICAL SPINE: Yes normal cervical lordosis Chest: COMMONS NORMALS: normal inspection of the chest CHEST: Yes Symmetrical chest wall rise and Yes tenderness (right lateral chest wall) Resp: COMMON NORMALS: normal respiratory effort, No use of accessory muscles and clear to auscultation bilaterally EFFORT & INSPECTION: No tachypneic, Yes respiratory distress, No retractions, No uses accessory muscles and No tracheal deviation AUSCULTATION: clear to auscultation bilaterally, no rhonchi, no wheezes and lung sounds not diminished Cardio: COMMON NORMALS: regular rate and regular rhythm RATE: regular rate RHYTHM: regular rhythm HEART SOUNDS: no murmurs PERIPHERAL PULSES: radial pulses present GI: COMMON NORMALS: Normal to inspection, nondistended, normoactive bowel sounds present and Soft to palpation INSPECTION: No abdominal distension AUSCULTATION: No Hyperactive bowel sounds present and No Hypoactive bowel sounds present PALPATION: Yes Soft to palpation, No Tenderness to palpation present (GI), No Guarding due to palpation present (GI) and No Rigid due to palpation PERCUSSION: no dullness to percussion and no tympanic to percussion Extremity: COMMON NORMALS: normal to inspection and no pedal edema Neuro: GLEN COMA SCALE: document GCS findings Hubbard coma scale eye opening: Spontaneous Glen coma scale verbal response: Orientated [place] coma scale motor response: Obey commands Hubbard coma scale total score: 15 SENSORIUM/ORIENTATION: Yes alert, Yes oriented to person, No oriented to place and Yes oriented to time Psych: COMMON NORMALS: mental status grossly normal and speech normal SPEECH: Yes normal speech Skin: COMMON NORMALS: no rashes or lesions noted GENERAL SKIN EXAM: no rashes or lesions noted Course Vital Signs: Vital signs: Vital Signs Temperature 98 F 09/03/21 00:17 Pulse Rate 80 09/03/21 03:48 Respiratory Rate 16 09/03/21 03:48 Blood Pressure 117/72 09/03/21 03:48 Pulse Oximetry 99 09/03/21 03:48 [facility] - General Adult Medical Decision Making Chest wall reproducible tenderness. Chest x-ray is negative. She is nontachycardic, nonhypoxic. O2 sats is normal. She will be treated for costochondritis. Discharge Plan Discharge Patient Disposition: Home Clinical Impression: Costochondritis Condition: Stable Prescriptions: New Medrol (See) 4 mg tablets,dose pack See Rx Instructions .ROUTE .COMPLEX Qty: 21 0RF Rx Instructions: orally per package directions No Action Celebrex 100 mg capsule 100 mg PO BID Qty: 20 0RF cyclobenzaprine 5 mg tablet 5 mg PO TID PRN (Reason: muscle spasm) Qty: 10 0RF Discharge Orders: Discharge ED (Routine); Ordered 09/03/21 Ordered By: Dominic Chavez Referrals: Johnson Motta MD [Primary Care Provider] - 1-3 days Patient Instructions: Costochondritis (ED), Opioid Safety Activity Restrictions/Additional Instructions: Return for fever greater than 100, shortness of breath, blood in the urine, vomiting liquids or medications, any other concerning symptoms. Coding Level of Care Code ED Process Cheese Cooker for Sravan Cabello
== END 2021-09-03 03:51 | disposition home or self-care (01) ==
PROVIDERS: Emergency Provider Emergency Medicine; PCP Family Medicine
DX: M94.0 Chondrocostal junction syndrome [Tietze] (principal)
CPT/HCPCS: 71045; 96374; 96375; 99284; J1885; J2405

== ENCOUNTER → 2022-10-30 10:55 | Outpatient (BNVA) | payer SELFPAY | PROVIDERS: PCP Family Medicine; Visit Provider Nurse Practitioner Family | DX: F41.9 Anxiety disorder, unspecified (principal); F32.A Depression, unspecified | CPT/HCPCS: 80053; 84439; 84443; 84481; 85025; 87070; 87077; 87184; 87205 ==

== ENCOUNTER → 2023-01-05 08:45 | Outpatient (BNVA) | payer BC, MEDICAID, SELFPAY | PROVIDERS: PCP Nurse Practitioner Family; Visit Provider Family Medicine Adult Medicine | DX: J02.9 Acute pharyngitis, unspecified (principal); Z33.1 Pregnant state, incidental | CPT/HCPCS: 87071; 87880 ==

== ENCOUNTER 2023-05-08 21:20 | Outpatient (CLI) | payer BC, MEDICAID, SELFPAY ==
[2023-05-08 21:20] VITALS: BMI 27.9
[2023-05-08 21:27] VITALS: BP 141/77; PULSE 110
[2023-05-08 21:35] VITALS: TEMP 37
[2023-05-08 21:51] VITALS: BP 131/75; PULSE 95
[2023-05-08 22:09] LABS: Bilirubin Urine Neg (Negative); Blood Urine Neg (Negative); Glucose Urine UA Norm (Normal); Ketones Urine Negative (Negative); Leukocyte Esterase Urine 1+ (Negative); Nitrate Urine Negative (Negative); Protein Urine Neg (Negative); Specific Gravity, Urine 1.015 (1.005-1.030); Urine Appearance Clear (CLEAR); Urine Color Colorless (Yellow); Urobilinogen Urine Neg (Negative); pH Urine 6 (5-7)
[2023-05-08 22:10] LABS: Add Urine Culture? No; Bacteria Urine 1+ /hpf; RBC Urine 0-4 /hpf (0-2); Squamous Epithelial Cell Urine 0-4 /hpf (0-5)
[2023-05-08 22:22] VITALS: BP 136/77; PULSE 101
[2023-05-08 22:30] VITALS: BP 136/77; PULSE 101; RESP 16
== END 2023-05-08 22:31 | disposition home or self-care (01) ==
LOC: OPOB 21:20 → OBGYN 21:21
PROVIDERS: PCP Nurse Practitioner Family; Visit Provider Family Medicine
DX: O26.899 Other specified pregnancy related conditions, unspecified trimester (principal); Z3A.00 Weeks of gestation of pregnancy not specified; R50.9 Fever, unspecified
CPT/HCPCS: 81001; 87086; 99211

== ENCOUNTER 2023-08-01 02:30 | Outpatient (CLI) | payer BC, MEDICAID, SELFPAY ==
[2023-08-01 02:33] VITALS: BMI 30.8
[2023-08-01 02:48] VITALS: BP 138/80; PULSE 104
[2023-08-01 02:50] VITALS: RESP 16
[2023-08-01 04:20] VITALS: BP 139/78; PULSE 99
[2023-08-01 04:40] VITALS: BP 120/73; PULSE 87
[2023-08-01 04:57] VITALS: BP 133/83; PULSE 71; TEMP 35.7
== END 2023-08-01 05:06 | disposition home or self-care (01) ==
LOC: OPOB 02:35 → OBGYN 02:36
PROVIDERS: PCP Nurse Practitioner Family; Visit Provider Family Medicine
DX: O26.899 Other specified pregnancy related conditions, unspecified trimester (principal); Z3A.00 Weeks of gestation of pregnancy not specified; R10.9 Unspecified abdominal pain
CPT/HCPCS: 59025; 99211

== ENCOUNTER 2023-08-02 00:26 | Outpatient (CLI) | payer BC, MEDICAID, SELFPAY ==
[2023-08-02 00:25] VITALS: BMI 30.9
[2023-08-02 00:34] VITALS: BP 136/77; PULSE 98
[2023-08-02 00:41] VITALS: RESP 16
[2023-08-02 00:55] VITALS: BP 128/69; PULSE 100
[2023-08-02 01:15] VITALS: BP 140/77; PULSE 100
[2023-08-02 01:35] VITALS: BP 105/58; PULSE 76
== END 2023-08-02 01:41 | disposition home or self-care (01) ==
LOC: OPOB 00:27 → OBGYN 00:28
PROVIDERS: PCP Nurse Practitioner Family; Visit Provider Family Medicine
DX: O26.899 Other specified pregnancy related conditions, unspecified trimester (principal)
CPT/HCPCS: 59025; 99211

== ENCOUNTER 2023-08-06 16:41 | Outpatient (CLI) | payer BC, MEDICAID, SELFPAY ==
[2023-08-06] VITALS (9 sets, daily range): BP systolic 121–156; BP diastolic 64–81; PULSE 71–90; RESP 18; BMI 31.6
== END 2023-08-06 19:44 | disposition home or self-care (01) ==
LOC: OPOB 16:46 → OBGYN 16:46
PROVIDERS: PCP Nurse Practitioner Family; Visit Provider Family Medicine
DX: O26.899 Other specified pregnancy related conditions, unspecified trimester (principal)
CPT/HCPCS: 59025; 99211

== ENCOUNTER 2023-08-13 06:15 | Inpatient (IN) | payer BC, MEDICAID, SELFPAY ==
[2023-08-13] VITALS (82 sets, daily range): BP systolic 106–179; BP diastolic 42–96; PULSE 68–155; RESP 16; TEMP 36.7–37.3; O2SAT 97–100; BMI 32.1
[2023-08-13 07:06] LABS: Basophils # 0.1 10^3/uL (0.0-0.1); Basophils % 0.2 %; Eosinophils # 0.1 10^3/uL (0.0-0.8); Eosinophils % 0.2 %; Hematocrit 45.4 % (36-47); Lymphocytes # 1.6 10^3/uL (0.8-4.8); Lymphocytes % 7.7 %; Mean Corpuscular HGB Conc 33.3 g/dL (30-55); Mean Corpuscular Hemoglobin 30.4 pg (27-33); Mean Corpuscular Volume 91.5 fl (85-98); Mean Platelet Volume 11.1 fL (7.4-10.4); Monocytes # 1.8 10^3/uL (0.2-0.9); Monocytes % 8.3 %; Neutrophils # 17.47 10^3/uL (1.8-7.7); Nucleated Red Blood Cells % 0 %; Platelet Count 226 10^3/cmm (157-399); Red Blood Count 4.96 10^6/uL (3.85-5.65); Red Cell Distribution Width 15.6 % (12.1-15.1); White Blood Count 21.06 10^3/uL (3.29-11.43)
[2023-08-13] MEDS: ampicillin 2,000 MG in sodium chloride 0.9% (plus) 50 ML 100 MG IV (09:26)
[2023-08-13] MEDS: dextrose 5%-lactated ringers 1,000 ML 125 ML IV ×2 (09:26→17:50)
[2023-08-13] MEDS: ondansetron 2 mg/ML SDV 2 mL 4 MG IVP ×2 (09:43→20:12)
[2023-08-13] MEDS: fentaNYL 50 mcg/mL INJ 2mL IVP ×2 (09:44→10:55)
--- NOTE | 2023-08-13 10:02 | PM.OPHPUD ---
Labor & Delivery H&P Update Date of Procedure: August 13, 2023 Date H&P Performed: 08/08/23 Changes to previous documentation: The patient demonstrated cervical dilation and consistent contractions Admission Diagnosis: 27-year-old 1 at 39 weeks estimated stational age presenting to the hospital in active labor Planned procedure: Vaginal delivery Other information: Patient is an otherwise healthy individual who has had a relatively unremarkable . She was positive for THC. She is GBS positive. Her blood type is a positive. Her antibody screen is negative. She is rubella immune. She passed her glucose screen. The remainder of her infectious disease profile is within normal limits. When she started making cervical change, an amniotomy was performed. She was noted to have thick meconium. Related Problem List Diagnoses (1) 39 weeks gestation of : A&P Assessment and plan (1) 39 weeks gestation of : I anticipate routine labor and vaginal delivery. She been placed on GBS protocol. Status: Acute
[2023-08-13 10:49] LABS: Amphetamines Screen Urine Negative (Negative); Barbiturates Screen Urine Negative (Negative); Benzodiazepines Screen Urine Negative (Negative); Cocaine Screen Urine Negative (Negative); Opiate Screen Urine Negative (Negative); PCP Screen Urine Negative (Negative); THC Screen Urine Positive (Negative)
[2023-08-13] MEDS: lactated ringers 1,000 ML 999 ML IV ×2 (11:30→21:45)
--- NOTE | 2023-08-13 12:26 | P.ANESASSM_ITS ---
Pre-Anesthetic Assessment Height/Weight: Height 1.55 m Weight 77.111 kg Temp Pulse Resp BP O2 Del Method 98.0 F 82 16 136/74 Room Air 08/13/23 10:00 08/13/23 11:44 08/13/23 10:55 08/13/23 11:44 08/13/23 06:00 Preop Diagnosis: labor pain epidural Was Beta Larisa taken within 24 hours: N/A Was Clonidine taken within 24 hours: N/A Exam alert, oriented x 3, clear to auscultation bilaterally and regular rate & rhythm Airway Submandibular: within normal limits Cervical ROM: within normal limits Mallampati: Class II Dentition: full Pulmonary None reported CV/HEM None reported None reported Hepatic None reported GI None reported Metabolic None reported Musc/skel None reported Neuropsych None reported Anesthetic Plan ASA status: 2 Anesthesia: Eval. for regional block and Regional (specify below) Risk of > 500 ml blood loss (7ml/kg in children): No Medications/Allergies Home Medications Medication Instructions Recorded Confirmed Last Taken Type 1 cap PO 1XD 05/08/23 08/13/23 1 Day Ago History ~08/12/23 Allergies Allergy/AdvReac Type Severity Reaction Status Date / Time latex Allergy ALGY-Hives Verified 08/13/23 04:54 Current Medications Generic Name Dose Route Start Last Admin Trade Name Freq PRN Reason Stop Dose Admin Fentanyl 25 - 100 mcg 08/13/23 06:19 08/13/23 10:55 Fentanyl 50 Mcg/Ml Inj 2ml IVP 25 mcg Q1H PRN Administration SEVERE PAIN Dextrose/Lactated Ringer's 1,000 mls @ 125 mls/hr 08/13/23 06:30 08/13/23 09:26 Dextrose 5%-Lactated Ringers IV 125 mls/hr .Q8H ARETHA Administration Ondansetron HCl 4 mg 08/13/23 06:19 08/13/23 09:43 Ondansetron 2 Mg/Ml Sdv 2 Ml IVP 4 mg Q4H PRN Administration NAUSEA AND VOMITING PFSH Anesthesia Medical History (Updated 08/13/23 @ 10:11 by Bronson Hernandez MD) Sore throat IUP (intrauterine ), incidental Psychiatric care Anxiety and depression Surgical History No pertinent past surgical history Family History Mother Psychiatric illness Social History Smoking and tobacco/nicotine status: never used tobacco/nicotine Alcohol intake: never Substance/Drug Use: never Adopted: No Caregiver/support person: No service: No Current occupational status: employed Sexually active: Yes Do you think of yourself as: Straight/Heterosexual Current gender identity: Female Female Reproductive History : 1 Data Anesthesia 08/13/23 06:50 Short CBC 08/13/23 Range/Units 06:50 WBC 21.06 H (3.29-11.43) 10^3/uL Hgb 15.10 (11.27-16.99) g/dL Hct 45.4 (36-47) % MCV 91.5 (85-98) fl Plt Count 226 (157-399) 10^3/cmm Neut % (Auto) 83.0 % Neut # (Auto) 17.47 H (1.8-7.7) 10^3/uL Blood Bank 08/13/23 06:50 Blood Type A Positive Rho(D) Type Rh positive Antibody Screen Negative Cardiac Studies: 2 No Data to Display
[2023-08-13] MEDS: ROPivacaine syringe 100 MG/50 ML SYRINGE 10 MG EPIDURAL (12:44)
--- NOTE | 2023-08-13 12:48 | P.ANES_ITS ---
Anesthesia Procedures Procedure/Date: 08/13/23 epidural Procedure Narrative: epidural complete, bolus given, epidural pump initiated with HOSPICE ADMITTING CLERK education given, vitals taken during procedure and satisfactory throughout, patient admits to decrease pain, report of procedure to OB RN Epidural: Time Out Performed: Yes Consents Signed: Procedure Consent Consent: requested by attending/covering physician, from patient, risks and benefits reviewed and patient agrees to proceed Lumbar Level: L3-L4 Ep idural position: sitting Epidural procedure: sterile prep of area, 1% lidocaine to numb the area (3 mL), 18 g needle, negative for paresthesia passed, neg for paresthesia, test dose given, 1.5% xylocaine 1:200k epi (5 mL), 0.2% Ropivacaine bolus ml (5 mL), placed PCEA, no systemic response, sterile dressing applied, L.U.D. no apparent complications and 0.2% Ropiavacaine @ mls/hr (13 mL/hr)
[2023-08-13] MEDS: ampicillin 1,000 MG in sodium chloride 0.9% (plus) 50 ML 100 MG IV ×2 (13:22→17:50)
[2023-08-13] MEDS: oxytocin 30 UNIT/500 ML BAG IV (16:59)
[2023-08-13] MEDS: ROPivacaine syringe 100 MG/50 ML SYRINGE 13 MG EPIDURAL (19:06)
--- NOTE | 2023-08-13 19:54 | PC.NURSE ---
During shift report, this RN noted that epidural pump was set at 13 mls/hr previously by anesthesia.
[2023-08-13] MEDS: miSOPROStol 200 mcg Tablet 800 MCG PR (21:25)
[2023-08-13] MEDS: methylergonovine 0.2 mg/mL INJ 1 mL 0.200000000000000011 MG IM (21:29)
--- NOTE | 2023-08-13 22:14 | P.PCNOB_ITS ---
Delivery Note: Date of delivery: August 13, 2023 Pre-delivery diagnoses: 27-year-old 1 at 39 weeks estima floyd gestational age presenting to the hospital in active labor and with no meconium. Post-delivery diagnoses: Status post vaginal delivery with shoulder dystocia and meconium. Procedure: Delivery of infant via vaginal delivery and shoulder dystocia Delivering Physician: Bronson Hernandez Estimated blood loss (mL): 300 Post Delivery Diagnoses: hemorrhage: Qualifiers: hemorrhage type: unspecified Qualified Code(s): O72.1 - Other immediate hemorrhage Pre-Delivery Course: The patient presented to the hospital in active labor. An amniotomy was performed. An epidural was placed. She progressed to complete without difficulty. The patient was noted to have thick meconium upon rupture of the membranes. Otherwise her labor was unremarkable. Her progress began to stall and we elected to augment with Pitocin. Delivery: DELIVERY: The patient progressed to complete without difficulty. After pushing for approximately half an hour she delivered the head of the . It became apparent that the shoulders would not deliver easily. The patient was placed in [place], and I began performing the corkscrewing reverse corkscrew maneuver. I did not have success and I then was able to loop under the axilla of the posterior shoulder but was still unable to deliver the . Pubic pressure was then placed. I was able to perform a corkscrew maneuver and deliver the anterior shoulder. The baby was then completely delivered without difficulty. She was a female with a weight of 7 pounds 3 ounces with Apgars of 1, 8. The baby was delivered from the ELISABETH position and placed on the mother's abdomen. The cord was then immediately clamped and cut. There was no nuchal cord. Thick meconium was noted. The placenta and 3 vessel cord were delivered intact shortly thereafter. The perineum and vaginal vault were carefully examined. No lacerations were noted. The mother did begin having brisk bleeding shortly after delivery of the placenta. She was given Cytotec 800 mcg per rectum, and later Methergine 0.2. I manually explored her uterus and was able to extract a large clot. Her bleeding improved dramatically thereafter. Post-Delivery Status: Good A&P Assessment and plan (1) 39 weeks gestation of : The patient appears to be doing very well right now. If there is any further bleeding problems, we will place another IV. Currently we are bolusing a liter and will continue to run the Pitocin at this time if she has no other further concerns or abnormal bleeding we will care for her as a routine patient. (2) Shoulder dystocia during labor and delivery, delivered: (3) care following vaginal delivery: (4) hemorrhage: Qualifiers: hemorrhage type: unspecified Qualified Code(s): O72.1 - Other immediate hemorrhage Coding Level of Care Code Acute Code for Chg Fwd Diagnoses 39 weeks gestation of Z3A.39 Shoulder dystocia during labor and delivery, delivered O66.0 care following vaginal delivery Z39.2 hemorrhage, unspecified type O72.1 hemorrhage type: unspecified
[2023-08-14] VITALS (9 sets, daily range): BP systolic 105–150; BP diastolic 51–86; PULSE 70–109; RESP 16; TEMP 36.5–36.7; O2SAT 95–100
[2023-08-14] MEDS: HYDROcodone-acetaminophen 5-325 mg Tablet PO (00:55)
[2023-08-14 06:33] LABS: Hematocrit 37.7 % (36-47); Mean Corpuscular HGB Conc 33.2 g/dL (30-55); Mean Corpuscular Hemoglobin 30.6 pg (27-33); Mean Corpuscular Volume 92.2 fl (85-98); Mean Platelet Volume 11.2 fL (7.4-10.4); Platelet Count 228 10^3/cmm (157-399); Red Blood Count 4.09 10^6/uL (3.85-5.65); Red Cell Distribution Width 15.8 % (12.1-15.1)
[2023-08-14 06:51] LABS: White Blood Count 35.98 10^3/uL (3.29-11.43)
--- NOTE | 2023-08-14 07:15 | P.PN_ITS ---
MANUFACTURING JOB TITLES Subjective 2 Subjective: Interval history: The patient has not had any bleeding issues since her original hemorrhage.Since her baby has been out of nursery, she has been breast-feeding well. Labor: Station: +2 Amniotic Membrane Status: Ruptured Monitor Mode: External Contraction Pattern: Regular Vitals/I&O/Wt Last Vital Signs Temp 97.7 F 08/14/23 05:15 Pulse 81 08/14/23 05:15 Resp 16 08/13/23 10:55 BP 128/75 08/14/23 05:15 Pulse Ox 95 08/14/23 05:15 O2 Del Method Room Air 08/14/23 05:15 08/13/23 08/14/23 08/14/23 22:59 06:59 14:59 Intake Total 1397.134 / 2497.134 Output Total 350 / 450 Balance 1047.134 / 2047.134 Weight last 48 hrs Weight 170 lb Weight 170 lb Physical Exam 2 Narrative: The patient is alert. She appears comfortable. Her heart has a regular rate and rhythm with no murmurs appreciated. Lungs are clear to auscultation bilaterally. Her fundus is firm and below the umbilicus. Urinary Catheter Management: Ward Latex Free: Cath Placed During This Visit: yes, but has since been removed by the nurse Reason for Continuing Indwelling Catheter: Decision to DC Catheter Urinary Catheter Date of Insertion: 08/13/23 Urinary Catheter Time of Insertion: 13:46 Date Urinary Catheter Removed: 08/13/23 Time Urinary Catheter Discontinued: 20:38 Data 08/14/23 05:27 A&P Assessment and plan (1) Shoulder dystocia during labor and delivery, delivered: (2) hemorrhage: Improved. We will continue to monitor her bleeding Qualifiers: hemorrhage type: unspecified Qualified Code(s): O72.1 - Other immediate hemorrhage (3) 39 weeks gestation of : (4) Leukocytosis: Recheck CBC in AM. Attestations 2 Medical Necessity Statement*: I hopeful the patient will be discharged home tomorrow Coding Level of Care Code Acute Code for Chg Fwd Diagnoses Shoulder dystocia during labor and delivery, delivered O66.0 hemorrhage, unspecified type O72.1 hemorrhage type: unspecified 39 weeks gestation of Z3A.39 Leukocytosis D72.829
[2023-08-14] MEDS: ibuprofen 800 mg tablet PO ×3 (08:54→20:21)
[2023-08-14] MEDS: docusate sodium 100 mg Capsule PO ×2 (08:54→20:21)
[2023-08-14] MEDS: PRENATAL VIT NO.130/IRON/FOLIC 1 EACH TABLET PO (08:54)
--- NOTE | 2023-08-14 09:00 | ANE.PACU2 ---
Inpatient post-anesthesia follow up: Airway intact: Yes Vital signs: Temperature 98.2 F Pulse Rate 71 Respiratory Rate 16 Blood Pressure 158/93 Pulse Oximetry 99 Oxygen Delivery Me thod Room Air Oxygen Flow Rate Fraction of Inspir ed Oxygen Hydration adequate: Yes Nausea and vomiting: No Pain level: 1 Mental status: Baseline Epidural Start/End: Epidural Start Date: 08/13/23 Epidural Start Time: 12:34 Epidural End Date: 08/13/23 Epidural End Time: 22:50
[2023-08-15 04:00] VITALS: BP 142/81; PULSE 64; RESP 16; TEMP 36.9; O2SAT 100
[2023-08-15] MEDS: PRENATAL VIT NO.130/IRON/FOLIC 1 EACH TABLET PO (09:29)
[2023-08-15] MEDS: ibuprofen 800 mg tablet PO ×2 (09:29→15:05)
[2023-08-15] MEDS: docusate sodium 100 mg Capsule PO (09:29)
[2023-08-15 09:41] VITALS: BP 140/80; PULSE 75; RESP 15; TEMP 36.6; O2SAT 97
[2023-08-15 15:11] VITALS: BP 144/75; PULSE 74; RESP 15; TEMP 36.6; TEMP 36.7; O2SAT 98
--- NOTE | 2023-08-15 16:36 | PM.OBGYDC ---
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 Date of Admission: 08/13/23 06:15 Date of Discharge: 08/20/23 Attending Provider at Admission: Bronson Hernandez MD Attending Provider at Discharge: Bronson Hernandez MD Primary Care Provider: RENETTA Rosenthal Diagnoses at Discharge Discharge Diagnosis (1) 39 weeks gestation of : Status: Resolved (2) Shoulder dystocia during labor and delivery, delivered: Status: Resolved (3) care following vaginal delivery: Status: Resolved (4) hemorrhage: Status: Resolved Qualifiers: hemorrhage type: unspecified Qualified Code(s): O72.1 - Other immediate hemorrhage Reason for Visit Reason for Visit: contractions Hospital Course Hospital Course The patient presented to the hospital in active labor. An amniotomy was performed. An epidural was placed. She progressed to complete without difficulty. Labor was augmented with Pitocin. She had a shoulder dystocia which resolved with appropriate maneuvers over about 2 and half minutes. Meconium was also noted. Postdelivery, she had an unremarkable course. Her pain was well-controlled. Her bleeding was within normal limits. She tolerated advanced diet without difficulty. Information Peripartum Data: Delivery Method: Vaginal Physical Exam Narrative: The patient is alert and oriented. Her lungs are clear to auscultation Her abdomen is nondistended nontender. Her fundus is a below the umbilicus. She has trace swelling in her extremities bilaterally. Urinary Catheter Management: Ward Latex Free: Cath Placed During This Visit: yes, but has since been removed by the nurse Reason for Continuing Indwelling Catheter: Decision to DC Catheter Urinary Catheter Date of Insertion: 08/13/23 Urinary Catheter Time of Insertion: 13:46 Date Urinary Catheter Removed: 08/13/23 Time Urinary Catheter Discontinued: 20:38 Discharge Data Studies Completed and Pending Pending at discharge Category Date Time Status CBC Auto Diff [Complete Blood Count w/Auto] Routine Lab 08/15/23 05:00 Ordered Laboratory Results WBC 35.98 10^3/uL (3.29-11.43) H* 08/14/23 05:27 RBC 4.09 10^6/uL (3.85-5.65) 08/14/23 05:27 Hgb 12.50 g/dL (11.27-16.99) 08/14/23 05:27 Hct 37.7 % (36-47) 08/14/23 05:27 MCV 92.2 fl (85-98) 08/14/23 05:27 MCH 30.6 pg (27-33) 08/14/23 05:27 MCHC 33.2 g/dL (30-55) 08/14/23 05:27 RDW 15.8 % (12.1-15.1) H 08/14/23 05:27 Plt Count 228 10^3/cmm (157-399) 08/14/23 05:27 MPV 11.2 fL (7.4-10.4) H 08/14/23 05:27 Neut % (Auto) 83.0 % 08/13/23 06:50 Lymph % (Auto) 7.7 % 08/13/23 06:50 [place] % (Auto) 8.3 % 08/13/23 06:50 Eos % (Auto) 0.2 % 08/13/23 06:50 Baso % (Auto) 0.2 % 08/13/23 06:50 Neut # (Auto) 17.47 10^3/uL (1.8-7.7) H 08/13/23 06:50 Lymph # (Auto) 1.6 10^3/uL (0.8-4.8) 08/13/23 06:50 [place] # (Auto) 1.8 10^3/uL (0.2-0.9) H 08/13/23 06:50 Eos # (Auto) 0.1 10^3/uL (0.0-0.8) 08/13/23 06:50 Baso # (Auto) 0.1 10^3/uL (0.0-0.1) 08/13/23 06:50 Nucleated RBC % (auto) 0 % 08/13/23 06:50 Nucleated RBCs # 0.0 /100WBC 08/13/23 06:50 Urine Opiates Screen Negative ng/mL (Negative) 08/13/23 09:40 Ur Barbiturates Screen Negative ng/mL (Negative) 08/13/23 09:40 Ur Phencyclidine Scrn Negative ng/mL (Negative) 08/13/23 09:40 Ur Amphetamines Screen Negative ng/mL (Negative) 08/13/23 09:40 U Benzodiazepines Scrn Negative ng/mL (Negative) 08/13/23 09:40 Urine Cocaine Screen Negative ng/mL (Negative) 08/13/23 09:40 U Marijuana (THC) Screen Positive ng/mL (Negative) H 08/13/23 09:40 Blood Type A Positive 08/13/23 06:50 Rho(D) Type Rh positive 08/13/23 06:50 Antibody Screen Negative 08/13/23 06:50 Vitals Last Vital Signs Temp 98.0 F 08/15/23 15:11 Pulse 74 08/15/23 15:11 Resp 15 08/15/23 15:11 BP 144/75 08/15/23 15:11 Pulse Ox 98 08/15/23 15:11 O2 Del Method Room Air 08/15/23 15:11 Results Labs OB ([facility]): Blood Type A Positive 08/13/23 Antibody Screen Negative 08/13/23 Hct 33.6 % (36-47) L 08/15/23 Hgb 10.80 g/dL (11.27-16.99) L 08/15/23 Rho(D) Type Rh positive 08/13/23 Plt Count 236 10^3/cmm (157-399) 08/15/23 TSH 0.36 uIU/mL (0.27-4.20) 10/30/22 Free T4 1.15 ng/dL (0.82-1.77) 10/30/22 Ser , Semi-Qnt 0.50 mIU/mL 05/07/19 HCG, Qual Negative (Negative) 08/18/19 Urine Opiates Screen Negative ng/mL (Negative) 08/13/23 Ur Barbiturates Screen Negative ng/mL (Negative) 08/13/23 Ur Phencyclidine Scrn Negative ng/mL (Negative) 08/13/23 Ur Amphetamines Screen Negative ng/mL (Negative) 08/13/23 U Benzodiazepines Scrn Negative ng/mL (Negative) 08/13/23 Urine Cocaine Screen Negative ng/mL (Negative) 08/13/23 U Marijuana (THC) Screen Positive ng/mL (Negative) H 08/13/23 Micro Urine Specimen 05/08/23 Discharge Plan Discharge Patient Disposition: Home Condition: Stable Prescriptions: New ibuprofen 800 mg Tablet 800 mg PO TID Qty: 45 0RF Continued 1 cap PO 1XD Discharge Orders: Discharge Order (Routine); Ordered 08/15/23 Ordered By: Bronson Hernandez Referrals: Bronson Hernandez MD [Physician] - 6 Weeks Discharge Diet: Usual diet Discharge Activity: Limit activity as instructed Patient Instructions: Depression (DC), Opioid Safety (DC), Preeclampsia and Eclampsia After Delivery (GEN), Hemorrhage (DC), OB Discharge Report, OB Food/Drug Interaction Guide, OB Care at Home, Opioid Safety, OB Vaginal Deliveries, Abnormal Bleeding Discharge Attestations OPEN 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
[2023-08-15 17:07] LABS: Basophils # 0.1 10^3/uL (0.0-0.1); Basophils % 0.5 %; Eosinophils # 0.2 10^3/uL (0.0-0.8); Hematocrit 33.6 % (36-47); Lymphocytes # 2.7 10^3/uL (0.8-4.8); Lymphocytes % 15.5 %; Mean Corpuscular HGB Conc 32.1 g/dL (30-55); Mean Corpuscular Hemoglobin 30.4 pg (27-33); Mean Corpuscular Volume 94.6 fl (85-98); Mean Platelet Volume 10.6 fL (7.4-10.4); Monocytes # 1.1 10^3/uL (0.2-0.9); Monocytes % 6.3 %; Neutrophils % 75.9 %; Nucleated Red Blood Cells % 0 %; Platelet Count 236 10^3/cmm (157-399); Red Blood Count 3.55 10^6/uL (3.85-5.65); Red Cell Distribution Width 15.6 % (12.1-15.1); White Blood Count 17.65 10^3/uL (3.29-11.43)
[2023-08-15 22:33] VITALS: BP 158/93; PULSE 71; RESP 16; TEMP 36.8; O2SAT 99
[2023-08-15 22:39] VITALS: BP 158/93; PULSE 71; RESP 16; TEMP 36.8; O2SAT 99
== END 2023-08-15 22:04 | disposition home or self-care (01) | DRG 807 ==
LOC: OPOB 08-14 07:27
PROVIDERS: Admitting Provider Family Medicine; PCP Nurse Practitioner Family; Visit Provider Family Medicine
DX: O99.824 Streptococcus B carrier state complicating childbirth (principal); Z37.0 Single live birth; O99.324 Drug use complicating childbirth; F12.90 Cannabis use, unspecified, uncomplicated; O77.0 Labor and delivery complicated by meconium in amniotic fluid; O66.0 Obstructed labor due to shoulder dystocia; Z3A.39 39 weeks gestation of pregnancy; D72.829 Elevated white blood cell count, unspecified; O72.1 Other immediate postpartum hemorrhage
CPT/HCPCS: 36415; 51702; 59025; 59409; 80306; 85025; 85027; 86850; 86900; 96372; 96374; 96376; 98960; 99211; J0290; J2210; J2405; J2590; J2795; J3010; J7120; J7121

== ENCOUNTER 2024-11-28 18:42 | Emergency (ER) | payer BC, MEDICAID, SELFPAY ==
--- OUTSIDE RECORDS SUMMARY | 2024-11-28 18:47 | XMS_ITS | Clinical Summary ---
Author Organization [employer] Address [address] Attn: Epic Prelude ADT [place]L RUDD [id number] Care Team Providers Care Buying Agent Name Role Phone Non-Staff, Physician Primary Care Provider Unava ilable Allergies Active Allergy Reactions Criticality Noted Date Comments Penicillins Hives High 11/12/2014 Venom-Wasp Swelling Low 11/12/2014 Medications vits15/iron/foli c/dss ( VIT 39-STNP-HXRZI-DS S ORAL) Take 1 Tablet by mouth late in the day. Active Active Problems Problem Noted Date Diagnosed Date Acne vulgaris 03/02/2016 Anxiety state 01/01/2012 Estimated Date of Delivery Comme nts Yes 08/18/2023 Immunizations Immunization Administration Dates Next Due (GARDASIL)(9-45 YRS) HUMAN PAPILLOMAVIRUS VACCINE, TYPES 6, 11, 16, 18, QUADRIVALENT (4VHPV), 3 DOSE, IM 03/14/2012,01/11/2012 (INFANRIX)(6 WKS-6 YRS) DIPT HERIA, TETANUS TOXOIDS, AND ACCELLULAR PERTUSSIS VACCINE (DTAP), 0.5 ML IM 10/02/2002,12/23/1998,04/12/1998,02/15,1997 (IPOL)(6 WKS AND UP) POLIOVI JEAN-CLAUDE VACCINE, INACTIVATED (IPV), 3 DOSE, SUBCUT OR IM 12/23/1998,04/12/1998,02/15/1998,11/11 (M-M-R II/PRIORIX)(12 MO UP) MEASLES, MUMPS AND RUBELLA VIRUS VACCINE, 0.5 ML IM/SUBCUT 10/02/2002,09/16/1998 (TDVAX)(7 YRS UP) TETANUS AN D DIPHTHERIA TOXOIDS, ADSORBED (2 LF OF TETANUS TOXOID AND 2 LF OF DIPHTHERIA TOXOID), 0.5ML (PF), IM 03/19/2011 (VARIVAX)(12 MOS UP)VARICELL A VIRUS VACCINE (PF) 0.5 ML, SUB CUT 09/30/2001 Dt Dtp Dtap Vaccine 10/02/2002,12/23/1998,1997 HIB, Unspecified Formulation 12/23/1998, 04/12/1998,02/15/1998,11/11 Hepatitis A Vaccine 01/11/2012 Hepatitis B Vaccine 03/08/1998,1997,1997 IPV/OPV 09/30/2001,1997 Meningococcal ACWY Vaccine, Unspecified Formulation 09/23/2015 Poliovirus Vaccine Live Oral 09/30/2001 Social History Tobacco Use Types Packs/Day Years Used Date Smoking Tobacco: Never Smokeless Tobacco: Never Tobacco Cessation:Counseling Given: Not Answered Alcohol Use Standard Drinks/Week Comments No 0 (1 standard drink = 0.6 oz pur e alcohol) Feeling Safe Answer Date Recorded Are you in a relationship wi th someone who hurts you emotionally and/or physically? No 02/03/2023 Estimated Date of Delivery Comme nts Yes 08/18/2023 Sex and Gender Information Value Date Recorded Sex Assigned at Not on file Legal Sex Female 2:21 AM RECYCLING SORTER Gender Identity Not on file Sexual Orientation Not on file Last Filed Vital Signs Vital Sign Reading Time Taken Comments Blood Pressure 136/80 02/03/2023 7:33 PM RECYCLING SORTER Pulse 78 02/03/2023 7:13 PM RECYCLING SORTER Temperature 37.1 C (98.7 F) 02/03/2023 7:33 PM RECYCLING SORTER Respiratory Rate 12 02/03/2023 7:33 PM RECYCLING SORTER Oxygen Saturation 100% 02/03/2023 7:33 PM RECYCLING SORTER Inhaled Oxygen Concentration - - Weight 55 kg (121 lb 3.2 oz) 02/03/2023 3:22 PM RECYCLING SORTER Height 154.9 cm (5' 1 ) 02/03/2023 3:22 PM RECYCLING SORTER Body Mass Index 22.9 02/03/2023 3:22 PM RECYCLING SORTER Plan of Treatment Health Maintenance Due Date Last Done Comments DTAP/TDAP/TD VACCINES (6 - Tdap) 03/20/2011 03/19/2011, 10/02/2002, 10/02/2002, Additional history exists HPV VACCINES (3 - 2-dose series) 07/11/2012 03/14/20 12, 01/11/2012 CERVICAL CANCER SCREENING 2018 HPV/Cotest (21-29) 2018 PAP SMEAR 2018 INFLUENZA VACCINE (#1) 2024 RSV VACCINE (60+ or ) (1 - 1-dose 75+ series) 2072 HEPATITIS B VACCINES Completed 03/08/1998, 03/08/1998, 1997, Additional history exists Insurance MEDICAID Care Teams Buying Agent Relationship Specialty Start Date End Date Non-Staff, Physician NO ADDRESS ON FILE PCP - General 11/20/17
[2024-11-28 18:58] VITALS: BP 118/66; PULSE 97; RESP 16; TEMP 36.9; BMI 22.6
--- NOTE | 2024-11-28 20:06 | XRR_ITS ---
PROCEDURE INFORMATION: Exam: XR Right Hand Exam date and time: 11/28/2024 9:00 PM Age: 29 years old Clinical indication: Injury or trauma; Blunt trauma (contusions or hematomas); Right; Patient sustained a fall walking down steps and landed onto RT hand. C/O diffuse pain. TECHNIQUE: Imaging protocol: Radiologic exam of the right hand. Views: 3 or more views. COMPARISON: No relevant prior studies available. FINDINGS: Bones/joints: No acute fracture. Normal joint alignment. Soft tissues: Soft tissue swelling at level of the metacarpals XR/XR hand RT min 3V* [id number] IMPRESSION: No acute osseous abnormality.If there is anatomic snuffbox tenderness, recommend immobilization and follow-up radiographs in 7-14 days.
--- NOTE | 2024-11-28 23:15 | W.ED.EXTPRO ---
HPI - Extremity Problem General: Chief complaint: Extremity Injury, Upper Stated complaint: Rt. hand swollen from falling Time Seen by Provider: 11/28/24 21:01 History of Present Illness: 29-year-old female who fell down the stairs at home. She complains of swelling and pain to her right 3rd, 4th and 5th MCPs. Pain with movement. She cannot fully straighten or fully flex her fingers because of the pain. No other injury. She did not hit her head. Related Data Home Medications ?Medication ?Instructions ?Recorded ?Confirmed 1 cap PO 1XD 05/08/23 08/13/23 Previous Rx's ?Medication ?Instructions ?Recorded ibuprofen 800 mg tablet 800 mg PO TID #45 tabs 11/28/24 Allergies Allergy/AdvReac Type Severity Reaction Status Date / Time latex Allergy ALGY-Hives Verified 08/13/23 04:54 [facility] [place] [facility] PFS: Medical History (Updated 11/28/24 @ 22:05 by Dominic Chavez DO) Sore throat IUP (intrauterine ), incidental Anxiety and depression Surgical History No pertinent past surgical history Family History Mother Psychiatric illness Social History Smoking and tobacco/nicotine status: never used tobacco/nicotine Alcohol intake: never Substance/Drug Use: never Adopted: No Caregiver/support person: No service: No Current occupational status: employed Sexually active: Yes Do you think of yourself as: Straight/Heterosexual Current gender identity: Female Physical Exam Const: COMMON NORMALS: no acute distress GENERAL APPEARANCE: cooperative; not ill appearing and not frail appearing HENMT: COMMON NORMALS: normocephalic, atraumatic and Normal external nose present HEAD & SCALP: normocephalic and atraumatic FACE & SINUS: normal facial exam and face symmetric NOSE: Normal external nose present Eye: COMMON NORMALS: Equal, round and reactive pupils present and EOMs intact bilaterally PUPIL: Yes Equal, round and reactive pupils present Neck/C-Spine: GENERAL: Yes trachea midline Chest: CHEST: Yes Symmetrical chest wall rise Extremity: COMMON NORMALS: no pedal edema NARRATIVE EXTREMITY EXAM: Exam reveals swelling, with some mild redness over the 3rd, 4th and 5th MCP. There are some dorsal hand swelling more proximally that is less severe. There is tenderness over the MCPs in this area. No 1st or 2nd MCP tenderness. No wrist tenderness. No forearm tenderness. No rotational deformity. Patient can actively flex and straighten, only not fully. Neuro: GLEN COMA SCALE: document GCS findings Glen coma scale eye opening: Spontaneous Glen coma scale verbal response: Orientated Glen coma scale motor response: Obey commands [place] coma scale total score: 15 SENSORY EXAM: Yes extremities (intact) Psych: COMMON NORMALS: speech normal SPEECH: Yes normal speech Course Vital Signs: Vital signs: Vital Signs Temperature 98.4 F 11/28/24 18:58 Pulse Rate 97 11/28/24 18:58 Respiratory Rate 16 11/28/24 18:58 Blood Pressure 118/66 11/28/24 18:58 Oxygen Delivery Me thod Room Air 11/28/24 18:58 MDM - Extremity (Nontraumatic) Medical Decision Making Pain to the 3rd, 4th and 5th MCP locally. There is soft tissue swelling in the area. There are no fractures. She is placed in a volar splint, for the next few days. She is to call her doctor to be reevaluated and potentially carlos-rayed within 7 days or so. Ibuprofen for pain and swelling. Ice for pain and swelling. Return for problems. Lab Data Radiology Impressions Hand X-Ray 11/28/24 20:06 IMPRESSION: No acute osseous abnormality.If there is anatomic snuffbox tenderness, recommend immobilization and follow-up radiographs in 7-14 days. All radiology interpretation(s) finalized by discharge Discharge Plan Discharge Patient Disposition: Home Clinical Impression: Sprain, MCP, hand, right Condition: Stable Prescriptions: Continued ibuprofen 800 mg Tablet 800 mg PO TID Qty: 45 0RF No Action 1 cap PO 1XD Discharge Orders: Discharge ED (Routine); Ordered 11/28/24 Ordered By: Dominic Chavez Referrals: Lubna Maldonado FNP [Primary Care Provider, Family Practice] Bronson Hernandez MD [Physician, Family Practice] - 4-7 days Patient Instructions: Hand Sprain (ED), Opioid Safety, Pain Management, Patient Portal & Rima Instructions Activity Restrictions/Additional Instructions: Stay in your splint for the next several days. Ice for pain and swelling. You may take medication as above for pain and swelling as well. Return for any problems. Call your doctor next week for a follow-up appointment. When pain improves, you may come out of the splint. Print Language: [place] Coding Level of Care Code ED Cut Press Operator for Sravan Cabello
== END 2024-11-28 22:18 | disposition home or self-care (01) ==
PROVIDERS: Emergency Provider Emergency Medicine; PCP Nurse Practitioner Family
DX: S63.652A Sprain of metacarpophalangeal joint of right middle finger, initial encounter (principal); S63.654A Sprain of metacarpophalangeal joint of right ring finger, initial encounter; S63.656A Sprain of metacarpophalangeal joint of right little finger, initial encounter; W10.8XXA Fall (on) (from) other stairs and steps, initial encounter
CPT/HCPCS: 29125; 73130; 99283; 99291